=== PATIENT | female | born 1990 | race Caucasian/White ===

== ENCOUNTER 2025-07-21 10:17 | Outpatient (AMB) | payer BC, SELFPAY ==
--- NOTE | 2025-07-21 10:18 | MHC.OFFVIS ---
Vital Signs 07/21/25 10:20 Height 5 ft 2 in Weight 108 lb 0.424 oz BMI 19.8 BP 110/78 Blood Pressure Location Lt brachial Position Sitting Intake Visit Reasons: Constipation Intake Note: Marybel presents in the office as a new patient for constipation. CC: constipation, lower abdominal pains, sometimes blood in the stool. Varies - sometimes she has every 4 days BM and she has gone the longest was 2 weeks with no BM. Linzess was working for a little while but it stopped working after a while. Allergies sulfamethoxazole (From Bactrim) Allergy (Mild, Verified 07/21/25 10:20) Unknown trimethoprim (From Bactrim) Allergy (Mild, Verified 07/21/25 10:20) Unknown HPI Comments Details: 34 y.o F presenting for a second opinion on the management of chronic constipation. The patient was previously diagnosed with irritable bowel syndrome with constipation (IBS-C) by another provider at [facility]. The patient reports having issues with constipation for approximately four years, with symptoms worsening over the last year. The patient can go up to two weeks without a bowel movement. This is a change from the patient's baseline in their mid-20s, when bowel movements were much more regular. Associated symptoms include constant abdominal pain and cramping, which is sometimes relieved by flatulence but not defecation. The patient also experiences straining during bowel movements, a sensation of incomplete evacuation, and has noted occasional blood and mucus in the stool. Prior treatments have included Linzess up to 290 mcg, with the 145 mcg dose being slightly more effective before it stopped working. The patient has also tried Senna, MiraLax, Colace, prune juice, milk of magnesia, magnesium citrate, all with limited to no success. Currently, she uses 2 tabs bisacodyl as needed for relief, often requiring two tablets, which results in diarrhea. She also reports intermittent BRBPR with this. Previous workup includes a colonoscopy in 2021 which was incomplete due to suboptimal bowel preparation, and a Sitz marker study which reportedly showed a 'lazy bowel'. The patient reports drinking approximately 60 ounces of water daily and has tried fiber supplements. The patient's past medical history is negative for pregnancies and pelvic surgeries. Periods are regular and not painful. There is no personal or family history of eating disorders or family history of thyroid issues. --- Pt was informed and consented to the use of ambient scribe for this encounter. --- [facility] Surgical History Hx of colonoscopy Review of Systems Const All systems reviewed & are unremarkable except as noted in HPI and below Physical Exam Exam Exam: No apparent distress Nonicteric Abdomen soft, nondistended Alert and oriented x3, normal gait Vital Signs: Last Vital Signs BP 110/78 07/21/25 10:20 BMI result Body Mass Index 19.8 Assessment & Plan Assessment & Plan (1) Irritable bowel syndrome with constipation: Code(s): K58.1 - Irritable bowel syndrome with constipation Category: Medical (2) Bright red rectal bleeding: Code(s): K62.5 - Hemorrhage of anus and rectum Category: Medical Plan 1. IBS-C Overall sx consistent with IBS-C, that has been refractory to numerous porv-fyv-fapofhi and prescription treatments, including Linzess. Plan: - Labs ordered to evaluate for secondary causes of constipation, including thyroid function and calcium levels. - Cont good hydration and daily fiber supplement. - Start MiraLax, one capful in water daily. The dose can be titrated down to every other day if diarrhea occurs. - Amitiza 8 mcg BID. Advised to first try above x 1 week. If constipation persists, the patient should then add Amitiza to the regimen. - Call office if no improvement with amitiza x 2 weeks for dose adjustment. - The treatment goal is to achieve at least three bowel movements per week without straining, aiming for a Letcher Stool Chart type 3 or 4 consistency. - Medical records will be requested from the patient's previous gastroenterology provider, radha the colo report given report of intermittent rectal bleeding. Follow up 2 months Orders: Orders Magnesium Today K58.1 - Irritable bowel syndrome with constipation Transglutaminase IgA Today K58.1 - Irritable bowel syndrome with constipation TSH reflex Free T4 Today K58.1 - Irritable bowel syndrome with constipation Calcium Today K58.1 - Irritable bowel syndrome with constipation Medications: New polyethylene glycol 3350 (Miralax) 17 grams PO DAILY 1,530 grams 0RF 90 days lubiprostone (Amitiza) 8 mcg PO BID 180 caps 0RF 90 days Coding Level of Care Code New Pt Level 4 (97017) Diagnoses Irritable bowel syndrome with constipation K58.1 Bright red rectal bleeding K62.5
[2025-07-21 10:20] VITALS: BP 110/78; BMI 19.8
--- OUTSIDE RECORDS SUMMARY | 2025-07-21 11:46 | XMS_ITS | Clinical Summary ---
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 1 Active sodium,potassiu m,mag sulfates (Suprep Bowel Prep Kit) 17.5-3.13-1.6 gram recon soln bowel prep kit oral solution Take 177ML by mouth for 2 doses. SEE INSTRUCTIONS PROVIDED BY OFFICE. 1 kit Active Social History Tobacco Use Types Packs/Day Years Used Date Smoking Tobacco: Never Assessed Comments Unknown Sex and Gender Information Value Date Recorded Sex Assigned at Not on file Legal Sex Female 11:39 PM EST Gender Identity Not on file Sexual Orientation Not on file Last Filed Vital Signs Vital Sign Reading Time Taken Comments Blood Pressure 116/80 10/04/2022 3:51 PM EST R A rm Pulse - - Temperature - - Respiratory Rate - - Oxygen Saturation - - Inhaled Oxygen Concentration - - Weight 49.9 kg (110 lb) 01/04/2025 1:12 PM EDT Height 157.5 cm (5' 2 ) 01/04/2025 1:12 PM EDT Body Mass Index 20.12 01/04/2025 1:12 PM EDT Plan of Treatment Health Maintenance Due Date Last Done Comments DTaP,Tdap,and Td Vaccines (1 - Tdap) 11/09/2010 Cervical Cancer Screening: Pap Smear 11/09/2012 HPV Vaccines (1 - 3-dose SCDM series) 11/09/2018 HIV Screening 07/22/2022 Hepatitis C Screening 07/22/2022 Social Influencers of Health Screening 07/22/2022 Depression Screening 08/19/2024 COVID-19 Vaccine ( season) 2025 09/29/2021, 03/15/2021, 02/15/2021 Influenza Vaccine (#1) 2025 , 05/14/2023, 05/01/2021, Additional history exists RSV Immunization Adult Patients (1 - 1-dose 75+ series) 11/09/2066 Hepatitis B Vaccines Completed 06/06/2020, 01/06/2020, 12/04/2019 HIB Vaccines Aged Out No longer eligi ble based on patient's age to complete this topic Hepatitis A Vaccines Aged Out No long er eligible based on patient's age to complete this topic IPV Vaccines Aged Out No longer eligi ble based on patient's age to complete this topic MMR Vaccines Aged Out No longer eligi ble based on patient's age to complete this topic Meningococcal ACWY Vaccine Aged Out N o longer eligible based on patient's age to complete this topic Meningococcal B Vaccine Aged Out No l onger eligible based on patient's age to complete this topic Pneumococcal Vaccine: Pediatrics (0 to 5 Years) and At-Risk Patients (6 to 49 Years) Aged Out No longer eligible based on patient's age to complete this topic RSV Immunization Patients Under 20 months Aged Out No longer eligible based on patient's age to complete this topic Varicella Vaccines Aged Out No longer eligible based on patient's age to complete this topic Insurance [facility] Care Teams Supervisor [employer]ing [employer] Relationship Specialty Start Date End Date Maxi Lozano DO [address] [place] [phone] PCP - General Internal Medicine 07/07/24
--- OUTSIDE RECORDS SUMMARY | 2025-07-21 11:46 | XMS_ITS ---
Author Name [facility] Organization Unknown Encounters Encounter Type Encounter Reason Primary Diagnosis Location Date Ambulatory [facility] 01/21/2025 Care Team Organization Name Specialty Phone Email Start Date End Da te [facility], [facility] 01/21/2025
--- OUTSIDE RECORDS SUMMARY | 2025-07-21 11:46 | XMS_ITS | Patient Health Record ---
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 Name Role Phone Joanne TURCIOS, Richa Primary Care Provider Mechelle peralta Jay Powellmie Unavailable [phone] Allergies Allergen (clinical drug ingredient) Drug/Non Drug Allergy documented on EMR Reaction Allergy Type Onset Date Status sulfa Unknown Drug Allergy Active Reason For Referral No Information Medications Medication SIG (Take, Route, Fr equency, Duration) Notes Start Date End Date Status Aviane Unknown Linzess Active Ciclopirox 8 % 1 application daily to toenails Externally Once a day; Duration: 360 days 07/14/2024 Active Methotrexate Unknown Social History Tobacco Use: Social History Observation Description Date Details (start date - stop date) Never Smoker NA - NA Tobacco use other than smoking: Question Answer Notes Are you an other tobacco user? No Tobacco Control (Standard) Question Answer Notes Tobacco use: Nonsmoker Additional Findings: Tobacco non-user Current no nsmoker AUDIT-C (Standard) Question Answer Notes Did you have a drink contain ing alcohol in the past year? Yes How often did you have six o r more drinks on one occasion in the past year? Never (0 point) How many drinks did you have on a typical day when you were drinking in the past year? 1 or 2 drinks (0 point) How often did you have a dri nk containing alcohol in the past year? Monthly or less (1 point) Points 1 Interpretation Negative Problems Problem Type SNOMED Code ICD Code Onset Dates Problem Status W/U Status Risk Notes Problem Acquired hallux valgus (64106258) Hallux valgus (acquired), left foot (M20.12) Active confirmed Problem Acquired hallux valgus (10240023) Hallux valgus (acquired), right foot (M20.11) Active confirmed Plan Of Treatment Pending Test Test Name Order Date [id number] NAIL, 1-5 07/14/2024 Nail Panel 11/12/2017 Insurance Providers Payer Name Payer Address Payer Phone Subscriber Number Group Number Insured Name Patient Relationship to Insured Coverage Start Date Coverage End Date [facility] All Others [address] [place] [address] [id number] Marybel Vanegas Self - patient is the insured 3 Medical (General) History Medical History History ICD Code Arthritis
== END 2025-07-21 10:43 | disposition home or self-care (01) ==
LOC: HO.HGI 10:17
PROVIDERS: PCP Internal Medicine; Visit Provider Internal Medicine
DX: K58.1 Irritable bowel syndrome with constipation (principal); K62.5 Hemorrhage of anus and rectum
CPT/HCPCS: 99204

== ENCOUNTER 2025-07-29 09:58 | Outpatient (REF) | payer BC, SELFPAY ==
[2025-07-29 11:27] LABS: Calcium 9.5 mg/dL (8.4-10.2); Magnesium 2.1 mg/dL (1.6-2.6)
== END 2025-07-29 09:59 | disposition home or self-care (01) ==
LOC: HO.LAB 09:58
PROVIDERS: PCP Internal Medicine; Visit Provider Internal Medicine
DX: K58.1 Irritable bowel syndrome with constipation (principal)
CPT/HCPCS: 36415; 82310; 83735; 84443; 86364